=== PATIENT | male | born 1940 | race Caucasian/White ===

== ENCOUNTER → 2018-09-02 | Outpatient (CLI) | payer OTHER ==
[~2018-09-02] MED LIST: AEC81 PO; ATOR20TA65 PO; CHOL100040 PO; CITA-107 PO; CYAN25002 PO; FISH1CAP50 PO; GLUC1CAP36 PO; LACT1CAP62 PO; LISI-617 PO; MAGN500C15 PO; METO-391 PO; MULT-1258 PO; PRAS10TA6 PO; REGADENOSON 0.4 MG/5 ML PF SYG IVP SCH; UBID200C18 PO
== END | disposition home or self-care (01) ==
LOC: SHCH 08:23
PROVIDERS: ATTEND Internal Medicine Cardiovascular Disease
DX: Z01.810 Encounter for preprocedural cardiovascular examination (principal)
CPT/HCPCS: 78452; 93017; 96374; A9500 ×2; J2785

== ENCOUNTER → 2018-12-13 | Outpatient (CLI) | payer OTHER ==
[~2018-12-13] MED LIST changes: -AEC81 PO; +AMLO5TAB9 PO; +ASPI-1012 PO; -ATOR20TA65 PO; -CYAN25002 PO; +CYAN50008 PO; -FISH1CAP50 PO; -GLUC1CAP36 PO; +HYDR-4457 PO; +KRIL500C PO; -LACT1CAP62 PO; -LISI-617 PO; +LISI10TA7 PO; -METO-391 PO; -PRAS10TA6 PO; -REGADENOSON 0.4 MG/5 ML PF SYG IVP SCH; +ROSU20TA30 PO; +TIZA4TAB4 PO
== END | disposition home or self-care (01) ==
LOC: RAH 12:37
PROVIDERS: ATTEND Family Medicine
DX: N18.9 Chronic kidney disease, unspecified (principal)
CPT/HCPCS: 76770

== ENCOUNTER → 2021-11-02 | Outpatient (CLI) | payer MEDICARE ==
[~2021-11-02] MED LIST changes: +AMLO-257 PO; -AMLO5TAB9 PO; -CYAN50008 PO; +CYAN50009 PO; +IOHEXOL-350 50ML VIAL IV ONE; +LISI10TA24 PO; -LISI10TA7 PO; -MAGN500C15 PO; +MAGN500C4 PO; -ROSU20TA30 PO; +ROSU20TA31 PO; +TIZA-211 PO; -TIZA4TAB4 PO
== END | disposition home or self-care (01) ==
LOC: OIH 11:45
PROVIDERS: ATTEND Family Medicine
DX: G93.89 Other specified disorders of brain (principal); R41.82 Altered mental status, unspecified
CPT/HCPCS: 70470; Q9967

== ENCOUNTER 2022-07-27 16:11 | Emergency (ER) | payer MEDICARE ==
[~2022-07-27] VITALS: Ht 162.6 cm; Wt 99.8 kg
[~2022-07-27 16:11] MED LIST changes: -IOHEXOL-350 50ML VIAL IV ONE
[2022-07-27] MEDS ORDERED: HYDROCODONE/ACETAMINOPHEN 10/325 MG TAB PO ONE (17:30)
[2022-07-27] MEDS ORDERED: DIPH,PERTUSS(ACELL),TET VAC/PF 0.5 ML VIAL IM ONE (17:30)
[2022-07-27] MEDS ORDERED: TETANUS/DIPHTHERIA TOXOID [ADULT] 0.5 ML VIAL IM ONE ×2 (17:32→18:00)
[2022-07-27] MEDS ORDERED: AMOX1TAB16 PO (18:03)
[2022-07-27] MEDS ORDERED: ACET-2079 PO (18:03)
[2022-07-27] MEDS ORDERED: IBUP-2070 PO (18:03)
[2022-07-27 18:16] VITALS: BP 144/75
== END 2022-07-27 18:18 | disposition home or self-care (01) ==
LOC: EDH 16:11
DX: S61.300A Unspecified open wound of right index finger with damage to nail, initial encounter (principal); S61.302A Unspecified open wound of right middle finger with damage to nail, initial encounter; E78.00 Pure hypercholesterolemia, unspecified; I10 Essential (primary) hypertension; I25.10 Atherosclerotic heart disease of native coronary artery without angina pectoris; Z79.82 Long term (current) use of aspirin; Z79.899 Other long term (current) drug therapy; Z95.5 Presence of coronary angioplasty implant and graft; W45.8XXA Other foreign body or object entering through skin, initial encounter; Y93.89 Activity, other specified; Y92.89 Other specified places as the place of occurrence of the external cause; Y99.8 Other external cause status
CPT/HCPCS: 73130; 90471; 90714; 90715

== ENCOUNTER → 2024-02-26 | Outpatient (CLI) | payer MEDICARE ==
[~2024-02-26] MED LIST changes: +ACET-2079 PO; +AMOX1TAB16 PO; +IBUP-2070 PO; -ROSU20TA31 PO; +ROSU20TA73 PO
[2024-02-26] MEDS: REGADENOSON 0.4 MG/5 ML PF SYG IVP ONE (14:36)
== END | disposition home or self-care (01) ==
LOC: SHCH 07:53
PROVIDERS: ATTEND Internal Medicine Cardiovascular Disease
DX: I25.10 Atherosclerotic heart disease of native coronary artery without angina pectoris (principal); R06.09 Other forms of dyspnea; R06.00 Dyspnea, unspecified; R51.9 Headache, unspecified
CPT/HCPCS: 78452; 96374; 93017; J2785; A9500 ×2

== ENCOUNTER 2024-04-01 06:29 | Day surgery (SDC) | payer MEDICARE ==
[2024-03-28 13:18] LABS: BASOPHILS # (AUTO) 0.04 K/uL (0.00-0.20); BASOPHILS % (AUTO) 0.5 % (0.0-5.0); EOSINOPHILS # (AUTO) 0.07 K/uL (0.00-0.70); EOSINOPHILS % (AUTO) 0.8 % (0.0-8.0); HEMATOCRIT 42.4 % (42-54); IMMATURE GRANULOCYTE ABSOLUTE 0.03 K/uL (0-1); LYMPHOCYTES # (AUTO) 2.8 K/uL (1.0-4.8); LYMPHOCYTES % (AUTO) 33.6 % (21.0-51.0); MEAN CORPUSCULAR HEMOGLOBIN 29.4 pg (27.0-33.0); MEAN CORPUSCULAR HGB CONC 33.3 g/dL (32.0-36.0); MEAN CORPUSCULAR VOLUME 88.3 fL (79-99); MONOCYTES # (AUTO) 0.7 K/uL (0.1-1.0); MONOCYTES % (AUTO) 8.6 % (3.0-13.0); NEUTROPHILS # (AUTO) 4.6 K/uL (1.8-7.7); NEUTROPHILS % (AUTO) 56.1 % (40.0-77.0); PLATELET COUNT (AUTO) 278 K/uL (130-400); RED CELL DISTRIBUTION WIDTH 13.2 % (11.0-15.5); WHITE BLOOD COUNT (AUTO) 8.3 K/uL (4.8-10.8)
[2024-03-28 13:25] LABS: CREATININE 1.6 mg/dL (0.5-1.3); POTASSIUM 4.8 mmol/L (3.5-5.1)
[2024-03-28 13:37] LABS: APPEARANCE,URINE CLEAR (CLEAR); BILIRUBIN,URINE NEGATIVE (NEGATIVE); COLOR,URINE YELLOW (YELLOW); GLUCOSE, URINE (UA) 50 mg/dL (NEGATIVE); KETONES,URINE NEGATIVE (NEGATIVE); LEUKOCYTE ESTERASE ,URINE NEGATIVE Leu/uL (NEGATIVE); NITRATE,URINE NEGATIVE (NEGATIVE); OCCULT BLOOD,URINE NEGATIVE (NEGATIVE); PROTEIN,URINE 20 mg/dL (NEGATIVE)
[2024-03-28 13:44] LABS: INR 1.02 (0.85-1.15)
[2024-03-28 13:45] LABS: PARTIAL THROMBOPLASTIN TIME 25.1 SEC (26.3-35.5)
[2024-03-28 13:46] VITALS: BP 144/75; PULSE 63; RESP 17
[2024-03-28 13:51] LABS: ADD UA MICROSCOPIC YES
[2024-03-28 13:53] LABS: BACTERIA,URINE RARE /HPF (None Seen); MUCUS,URINE RARE LPF (None Seen); SQUAMOUS EPITHELIAL CELL,UR RARE /HPF (0-2)
[2024-03-28 14:04] LABS: B-TYPE NATRIURETIC PEPTIDE < 5 pg/mL (0-100)
[2024-04-01] VITALS (8 sets, daily range): BP systolic 132–157; BP diastolic 71–86; PULSE 54–66; RESP 14–15
[~2024-04-01] VITALS: Ht 171.4 cm; Wt 97.9 kg
[~2024-04-01 06:29] MED LIST changes: -ACET-2079 PO; -AMOX1TAB16 PO; -ASPI-1012 PO; -CHOL100040 PO; +CHOL500045 PO; +CLOP75TA32 PO; -CYAN50009 PO; +CYAN500T46 PO; +ESOM20CA31 PO; -HYDR-4457 PO; -IBUP-2070 PO; +ICOS1CAP PO; -KRIL500C PO; -LISI10TA24 PO; +MAGN400T53 PO; -MAGN500C4 PO; +METF-446 PO; +SEMA3TAB4 PO; -TIZA-211 PO; +UBID100C45 PO; -UBID200C18 PO
[2024-04-01] MEDS: 0.9%NACL 1000ML 1,000 ML IV ONE (07:35)
[2024-04-01] MEDS ORDERED: LIDOCAINE HCL 400MG/20ML VIAL ONE (11:19)
[2024-04-01] MEDS ORDERED: HEPARIN 10,000 UNIT/10ML (1,000 UNIT/ML) VIAL ONE (11:20)
[2024-04-01] MEDS ORDERED: BIVALIRUDIN 250 MG/VIAL IV ONE ×2 (11:20→13:20)
[2024-04-01] MEDS ORDERED: IOHEXOL 350 MG/ML 100ML INFUS..BTL IV ONE (11:20)
[2024-04-01] MEDS ORDERED: NITROGLYCERIN 50MG VIAL ONE (11:23)
[2024-04-01] MEDS ORDERED: MIDAZOLAM HCL 1 MG/ML 2ML VIAL ONE (11:45)
[2024-04-01] MEDS ORDERED: FENTANYL CITRATE PF 50 MCG/1 ML 2ML VIAL ONE (11:45)
[2024-04-01] MEDS ORDERED: IOHEXOL-350 50ML VIAL IV ONE (11:46)
[2024-04-01] MEDS ORDERED: CLOPIDOGREL 300MG TAB ONE (12:28)
[2024-04-01] MEDS ORDERED: ASPIRIN 325MG EC TAB PO ONE (12:28)
[2024-04-01] MEDS ORDERED: acetaMINOPHEN WITH coDEINE 1 TAB TAB PO PRN ×2 (14:00)
[2024-04-01] MEDS ORDERED: ONDANSETRON 4MG INJ IVP PRN (14:00)
[2024-04-01] MEDS ORDERED: 0.9%NACL 1000ML 1,000 ML IV ONE (14:00)
== END 2024-04-01 17:25 | disposition home or self-care (01) ==
LOC: DAH 06:29
PROVIDERS: ATTEND Internal Medicine Cardiovascular Disease
DX: R94.39 Abnormal result of other cardiovascular function study (principal); I25.118 Atherosclerotic heart disease of native coronary artery with other forms of angina pectoris; I12.9 Hypertensive chronic kidney disease with stage 1 through stage 4 chronic kidney disease, or unspecified chronic kidney disease; N18.30 Chronic kidney disease, stage 3 unspecified; E78.2 Mixed hyperlipidemia; Z96.651 Presence of right artificial knee joint; Z98.890 Other specified postprocedural states; Z79.82 Long term (current) use of aspirin; Z95.5 Presence of coronary angioplasty implant and graft; Z79.01 Long term (current) use of anticoagulants; Z79.84 Long term (current) use of oral hypoglycemic drugs; Z79.899 Other long term (current) drug therapy
CPT/HCPCS: 80048; 83880; 85025; 85610; 85730; 81001; 36415; 71045; 93005; 82948; 93458; C9600; C1887 ×2; C1894 ×2; C1725 ×3; C1760; C1874; C1769; J3010; J3490 ×2; J7030; J2250; J1644 ×2; J0583 ×2; Q9967; A4215; A4222; A4221; A4663; A4216; A4606; Q9965 ×2; A4223 ×3; 96360; 96361; 99156; 99157

== ENCOUNTER → 2024-09-18 | Outpatient (CLI) | payer MEDICARE ==
[~2024-09-18] MED LIST changes: -ROSU20TA73 PO; +ROSU20TA98 PO
[2024-09-18 12:49] LABS: CHOLESTEROL 189 mg/dL (<200); HDL CHOLESTEROL 34 mg/dL (29-71); LDL DIRECT 61 mg/dL (0-99); TRIGLYCERIDES 614 mg/dL (30-200)
== END | disposition home or self-care (01) ==
LOC: LAB 09:16
PROVIDERS: ATTEND Internal Medicine Cardiovascular Disease
DX: E78.2 Mixed hyperlipidemia (principal)
CPT/HCPCS: 36415; 80061